=== PATIENT | female | born 1990 | race Two or more races ===

== ENCOUNTER 2020-03-26 13:30 | Inpatient (IN) | payer OTHER ==
[~2020-03-26] VITALS: Ht 160 cm; Wt 72.1 kg
[2020-04-01] MEDS ORDERED: PRENATAL PLUS1 EAC1 PO (11:15)
== END 2020-04-03 18:21 | disposition home or self-care (01) | DRG 785 ==
LOC: O/R 04-01 10:58 → OB/GYN 04-01 10:58
PROVIDERS: ADMIT Obstetrics & Gynecology; ATTEND Obstetrics & Gynecology
PROC: 0UL70ZZ Occlusion of Bilateral Fallopian Tubes, Open Approach (ICD-10-PCS; 2020-04-01)
PROC: 4A1HXCZ Monitoring of Products of Conception, Cardiac Rate, External Approach (ICD-10-PCS; 2020-04-01)
PROC: 10D00Z1 Extraction of Products of Conception, Low, Open Approach (ICD-10-PCS; principal; 2020-04-01 14:15)
DX: O24.420 Gestational diabetes mellitus in childbirth, diet controlled (principal); Z3A.39 39 weeks gestation of pregnancy; Z37.0 Single live birth; Z30.2 Encounter for sterilization